=== PATIENT | male | born 1955 | race Caucasian/White ===

== ENCOUNTER 2017-07-11 12:10 | Outpatient (RCR) | payer OTHER | END 2017-08-08 | LOC: M CR 12:10 | DX: Z98.61 Coronary angioplasty status (principal); I21.09 ST elevation (STEMI) myocardial infarction involving other coronary artery of anterior wall ==

== ENCOUNTER 2018-05-13 15:08 | Emergency (ER) | payer OTHER ==
[2018-05-13] MEDS: ADACEL/BOOSTRIX VACCINE (DIPHTH/PERTUSS/ACELL/TETANUS)0.5ML SYR (90715) IM (16:09)
== END 2018-05-13 17:28 | disposition home or self-care (01) ==
LOC: M ED 15:08
DX: S40.012A Contusion of left shoulder, initial encounter (principal); V49.49XA Driver injured in collision with other motor vehicles in traffic accident, initial encounter; Y92.410 Unspecified street and highway as the place of occurrence of the external cause; I10 Essential (primary) hypertension; I25.10 Atherosclerotic heart disease of native coronary artery without angina pectoris; Z79.899 Other long term (current) drug therapy; Z79.84 Long term (current) use of oral hypoglycemic drugs; Z79.82 Long term (current) use of aspirin
CPT/HCPCS: 90715

== ENCOUNTER → 2019-01-13 | Outpatient (REF) | payer OTHER ==
[~2019-01-13] MED LIST: ASPI81TA85 PO; ATOR40TA75 PO; CLOP75TA2 PO; IBUP-1022 PO; LISI-542 PO; METF500T13 PO; METO1TAB32 PO
[2019-01-13 19:33] LABS: MALB URINE SIEMENS 13.9 MG/L; MAU/CREAT RATIO 9.6 MCG/MG (0.0-30.0)
== END ==
LOC: M LAB REF 16:43
PROVIDERS: ATTEND Internal Medicine
DX: E11.9 Type 2 diabetes mellitus without complications (principal)

== ENCOUNTER → 2019-02-13 | Outpatient (CLI) | payer OTHER ==
[2019-02-13 09:57] LABS: BLOOD UREA NITROGEN 17 MG/DL (7-18); CARBON DIOXIDE LEVEL 25 MEQ/L (21-32); CHLORIDE LEVEL 106 MEQ/L (98-107); CREATININE FOR GFR 1.15 MG/DL (0.70-1.30); GLOMERULAR FILTRATION RATE > 60.0 (>49); GLUCOSE, FASTING 135 MG/DL (70-100); POTASSIUM SERUM 4.6 MEQ/L (3.5-5.1); SODIUM LEVEL 139 MEQ/L (136-145)
== END ==
LOC: M LAB 08:30
PROVIDERS: ATTEND Orthopaedic Surgery
DX: E11.9 Type 2 diabetes mellitus without complications (principal)

== ENCOUNTER 2019-04-23 09:49 | Emergency (ER) | payer OTHER ==
[~2019-04-23] VITALS: Ht 175.3 cm; Wt 112.1 kg
[2019-04-23 10:35] LABS: BASO # 0.1 10^3/uL (0.0-0.2); BASO % 0.8 % (0.0-1.0); EOS # 0.1 10^3/uL (0.0-0.5); EOS % 1.9 % (0.0-3.0); HEMATOCRIT 38.2 % (42.0-52.0); HEMOGLOBIN 13.5 g/dl (13.5-17.5); LYMPH # 1.6 10^3/uL (1.5-5.0); LYMPH % 24.6 % (24.0-44.0); MEAN CORPUSCULAR HEMOGLOBIN 32.1 pg (27.0-33.0); MEAN CORPUSCULAR HGB CONC 35.3 g/dl (32.0-36.5); MEAN CORPUSCULAR VOLUME 90.7 fl (80.0-96.0); MONO # 0.8 10^3/uL (0.0-0.8); MONO % 12.6 % (0.0-5.0); NEUTROPHILS # 3.8 10^3/uL (1.5-8.5); NEUTROPHILS % 59.2 % (36.0-66.0); PLATELET COUNT, AUTOMATED 156 10^3/uL (150-450); RED BLOOD COUNT 4.21 10^6/uL (4.30-6.10); WHITE BLOOD COUNT 6.4 10^3/uL (4.0-10.0)
[2019-04-23 10:59] LABS: ALBUMIN 3.7 GM/DL (3.2-5.2); ALT/SGPT 54 U/L (12-78); BILIRUBIN,TOTAL 0.5 MG/DL (0.2-1.0); BLOOD UREA NITROGEN 17 MG/DL (7-18); CALCIUM LEVEL 8.8 MG/DL (8.8-10.2); CARBON DIOXIDE LEVEL 24 MEQ/L (21-32); CHLORIDE LEVEL 108 MEQ/L (98-107); CK-MB VALUE MASS 2.1 NG/ML (<3.6); CPK CREATINE PHOSPHOKINASE 162 U/L (39-308); CREATININE FOR GFR 1.17 MG/DL (0.70-1.30); GLOMERULAR FILTRATION RATE > 60.0 (>49); GLUCOSE, FASTING 123 MG/DL (70-100); POTASSIUM SERUM 4.3 MEQ/L (3.5-5.1); SODIUM LEVEL 139 MEQ/L (136-145); TOTAL PROTEIN 6.7 GM/DL (6.4-8.2); TROPONIN I < 0.02 NG/ML (< 0.10)
--- NOTE | 2019-04-23 10:59 | REP ---
CT head: 04/23/2019. Indication: Mental status change. Stroke. Comparison: None. Technique: Unenhanced axial CT images of the brain were obtained from skull base to vertex. Findings: There is no acute intracranial hemorrhage, acute cortical infarction, mass effect or hydrocephalous. Impression: No acute intracranial process. Electronically Signed by Tomy Logn DO 04/23/2019 10:51 A
[2019-04-23 11:06] LABS: PARTIAL THROMBOPLASTIN TIME 27.9 SECONDS (25.0-38.4); PROTHROMBIN TIME 12.9 SECONDS (11.8-14.0)
--- NOTE | 2019-04-23 15:12 | ECGEPIP ---
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
--- NOTE | 2019-04-23 16:06 | REP ---
MRI brain: 04/23/2019. Indication: Stroke. Comparison: No previous MRI studies are available for direct comparison. Technique: Multiplanar short and long TR sequences of the brain were obtained without IV Gadolinium. Findings: There are no areas of restricted diffusion to suggest an acute infarction. There is no intracranial mass effect or hemorrhage. There is no hydrocephalus. The large intracranial flow voids are present and unremarkable. 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 Impression: No acute intracranial process. Electronically Signed by Tomy Long DO 04/23/2019 03:57 P
--- NOTE | 2019-04-23 16:09 | REP ---
Intracranial MRA: 2018. Indication: Stroke. Comparison: None. Findings: There is no intracranial high-grade stenosis, vessel occlusion, aneurysm or AVM. Impression: No intracranial high-grade stenosis or vessel occlusion. Electronically Signed by Tomy Long DO 04/23/2019 04:00 P
--- NOTE | 2019-04-23 18:40 | REP ---
MRI cervical spine: 04/23/2019. Indication: Left hand numbness. Urgent MRI of the cervical spine requested. Comparison: None. Technique: Multiplanar shortened long TR sequences of the cervical spine were obtained. Findings: Image quality is degraded by patient motion. There is straightening of the cervical lordosis. New no worrisome foci of abnormal marrow are present. No abnormal cord signal is detected. C2/C3: There is no disc herniation or significant spinal canal / neural foraminal narrowing. C3/C4: There is no disc herniation or significant spinal canal / neural foraminal narrowing. C4/C5: Disc osteophyte complex is present most pronounced anteriorly without significant spinal canal or neural foraminal narrowing. There is mild effacement of the ventral thecal sac. C5/C6: Diffuse disc osteophyte complexes present without significant spinal canal narrowing. Mild to moderate left and mild right neural foraminal narrowing is present. Impression: No acute soft tissue injuries of the cervical spine detected. Spinal canal is patent without compression of the cord. No abnormal cord signal. Electronically Signed by Tomy Long DO 04/23/2019 05:17 P
[2019-04-23 19:40] LABS: CK-MB VALUE MASS 1.9 NG/ML (<3.6); CPK CREATINE PHOSPHOKINASE 127 U/L (39-308); TROPONIN I < 0.02 NG/ML (< 0.10)
[2019-04-23 20:05] VITALS: BP 134/79
--- NOTE | 2019-04-24 15:30 | ECGEPIP ---
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
== END 2019-04-23 20:15 | disposition home or self-care (01) ==
LOC: M ED 09:49
DX: R20.2 Paresthesia of skin (principal); I45.89 Other specified conduction disorders; I25.10 Atherosclerotic heart disease of native coronary artery without angina pectoris; E11.9 Type 2 diabetes mellitus without complications; I10 Essential (primary) hypertension; E78.5 Hyperlipidemia, unspecified; Z95.5 Presence of coronary angioplasty implant and graft; Z82.49 Family history of ischemic heart disease and other diseases of the circulatory system; Z79.82 Long term (current) use of aspirin; Z79.84 Long term (current) use of oral hypoglycemic drugs; Z79.899 Other long term (current) drug therapy

== ENCOUNTER → 2021-02-18 | Outpatient (CLI) | payer OTHER ==
[~2021-02-18] MED LIST changes: -ASPI81TA85 PO; +ASPI81TA86 PO; -LISI-542 PO; +LISI-898 PO
--- NOTE | 2021-02-18 10:40 | REP ---
INDICATION: F/U NODULES. COMPARISON: None. TECHNIQUE: Multiple ultrasonographic images of the thyroid. FINDINGS: The right lobe measures 4.3 x 2.8 x 2.3 cm. The left lobe measures 4.7 x 2.1 x 1.9 cm. The isthmus is 5 mm thickness. The thyroid gland is upper normal size. The thyroid parenchyma is heterogeneous. There is a 3 x 5 x 6 mm nodule in the isthmus. No other nodules, masses or cysts are identified. IMPRESSION: There is a small nodule in the isthmus measuring up to 6 mm. The thyroid gland is heterogeneous, this is nonspecific and can be seen in goitrous thyroid, Sanjiv thyroiditis and Graves disease. <Electronically signed by Erick Najera > 02/18/21 103
== END ==
LOC: M RAD 09:57
PROVIDERS: ATTEND Internal Medicine
DX: E07.89 Other specified disorders of thyroid (principal); E04.1 Nontoxic single thyroid nodule

== ENCOUNTER 2023-03-22 06:30 | Day surgery (SDC) | payer MEDICARE ==
[~2023-03-22] VITALS: Ht 175.3 cm; Wt 100.0 kg
[~2023-03-22 06:30] MED LIST changes: +ASPI81TA26 PO; +EZET10TA21 PO; +FARX1TAB3 PO; -LISI-898 PO; +LISI5TAB11 PO; +METF10004 PO; +NS 1,000 ML IV ONE
[2023-03-22] MEDS ORDERED: LIDOCAINE 2% 100MG/5ML SDV (FOR ANES.) As Ordered ONE (06:56)
[2023-03-22] MEDS ORDERED: propofoL 200 MG/20 ML VIAL As Ordered ONE (06:56)
[2023-03-22 07:54] VITALS: TEMP 97.6
[2023-03-22 08:10] VITALS: BP 120/62; O2SAT 98
== END 2023-03-22 08:27 | disposition home or self-care (01) ==
LOC: M OPP 06:30
PROVIDERS: ATTEND Internal Medicine Gastroenterology
DX: Z86.010 Personal history of colon polyps (principal); K63.5 Polyp of colon; K64.8 Other hemorrhoids; I25.10 Atherosclerotic heart disease of native coronary artery without angina pectoris; I25.2 Old myocardial infarction; I10 Essential (primary) hypertension; E78.5 Hyperlipidemia, unspecified; E11.9 Type 2 diabetes mellitus without complications; Z95.5 Presence of coronary angioplasty implant and graft; Z79.82 Long term (current) use of aspirin; Z79.84 Long term (current) use of oral hypoglycemic drugs; Z79.899 Other long term (current) drug therapy; Z80.3 Family history of malignant neoplasm of breast

== ENCOUNTER → 2025-04-03 | Outpatient (CLI) | payer MEDICARE ==
[~2025-04-03] MED LIST changes: -EZET10TA21 PO; +EZET10TA57 PO; -IBUP-1022 PO; +IBUP600T42 PO; -NS 1,000 ML IV ONE
== END ==
LOC: M RAD 10:13
PROVIDERS: ATTEND Nurse Practitioner Acute Care
DX: I65.23 Occlusion and stenosis of bilateral carotid arteries (principal)